=== PATIENT | female | born 1975 | race Caucasian/White ===

== ENCOUNTER 2019-02-19 10:25 | Emergency (ER) | payer BC ==
[2019-02-19 11:19] VITALS: BP 143/95
--- NOTE | 2019-02-19 16:30 | ED ---
Skin Complaint - HPI Summary HPI Summary: This patient is a 43-year-old female who is otherwise healthy presenting to the ED with a rash to the right side of the neck as well as to the right cheek. She states she was out gardening this weekend and immediately following the area started itching and becoming raised. She denies any changes with lotion or denies any tick bites or other rashes. Denies any spider bites. She states the area is very pruritic, slightly raised with small pustules, approximately 3- 4. She also is endorsing a slight burning sensation to the area. She denies any environmental changes or travel. She has tried hydrocortisone cream over- the-counter for relief. - History of Current Complaint Chief Complaint: EDRashSkinAbscess Time Seen by Provider: 02/19/19 10:51 Stated Complaint: HIVES PER PT Hx Obtained From: Patient Onset/Duration: Started Days Ago Skin Exposure Onset/Duration: Days Ago Timing: Constant Onset Severity: Moderate Current Severity: Moderate Pain Intensity: 0 Pain Scale Used: 0-10 Numeric Skin Location: Other: - right sided facial rash Character: Hives, Redness, Raised, Painful Aggravating Symptom(s): Nothing Alleviating Symptom(s): Nothing - Additional Pertinent History Recent Stress Test: No Have you ever had this problem before: No - Allergy/Home Medications Allergies/Adverse Reactions: Allergies Allergy/AdvReac Type Severity Reaction Status Date / Time erythromycin base Allergy Rash Verified 02/19/19 10:33 PMH/Surg Hx/FS Hx/Imm Hx Previously Healthy: Yes - Cancer History Hx Chemotherapy: No Hx Radiation Therapy: No - Immunization History Hx Pertussis Vaccination: No Immunizations Up to Date: Yes Infectious Disease History: No Infectious Disease History: Denies: Traveled Outside the [place] in Last 30 Days - Social History Occupation: Employed Full-time Lives: With Family Alcohol Use: Occasionally Hx Substance Use: No Substance Use Type: Reports: None Hx Tobacco Use: No Smoking Status (MU): Never Smoked Tobacco Review of Systems Constitutional: Negative Negative: Fever, Chills, Fatigue, Skin Diaphoresis Negative: Palpitations, Chest Pain Negative: Shortness Of Breath, Cough Genitourinary: Negative Positive: no symptoms reported, see HPI Negative: Arthralgia, Myalgia Positive: Rash Neurological: Negative All Other Systems Reviewed And Are Negative: Yes Physical Exam Triage Information Reviewed: Yes Vital Signs On Initial Exam: Initial Vitals Temp Pulse Resp BP Pulse Ox 98.3 F 92 16 146/97 98 02/19/19 10:29 02/19/19 10:29 02/19/19 10:29 02/19/19 10:29 02/19/19 10:29 Vital Signs Reviewed: Yes Appearance: Positive: Well-Appearing, Well-Nourished Skin: Positive: Warm, Skin Color Reflects Adequate Perfusion, Other - erythematous slightly raised macules pruritic rash with 3-4 small pustules representing a poison shirin/oak rash Head/Face: Positive: Normal Head/Face Inspection Eyes: Positive: EOMI, DEEPAK, Conjunctiva Clear Neck: Positive: Supple, No Lymphadenopathy Respiratory/Lung Sounds: Positive: Clear to Auscultation, Breath Sounds Present Cardiovascular: Positive: RRR, Pulses are Symmetrical in both Upper and Lower Extremities Musculoskeletal: Positive: Normal, Strength/ROM Intact Neurological: Positive: Speech Normal Psychiatric: Positive: Affect/Mood Appropriate Diagnostics - Vital Signs Vital Signs Temp Pulse Resp BP Pulse Ox 02/19/19 11:17 98.3 F 88 16 143/95 99 02/19/19 10:29 98.3 F 92 16 146/97 98 - Laboratory Lab Statement: Any lab studies that have been ordered have been reviewed, and results considered in the medical decision making process. Course/Dx - Course Course Of Treatment: During his course of treatment, the patient is evaluated for a slightly raised pruritic and slightly burning sensation to the right side of the neck as well as to the right cheek. She is also endorsing a small area to the left forearm and to the left ankle. On physical examination, patient appears well. These areas are slightly raised with a few small pustules. They appear to be erythematous macules. This appears to be poison oak. She is encouraged [id number] hydrocortisone cream due to the location on the neck and on the face. She is also given a prednisone taper, will use Benadryl at bedtime and famotidine during the day. - Differential Diagnoses - Skin Complaint Differential Diagnoses: Other - Contact dermatitis, allergic reaction - Diagnoses Provider Diagnoses: Poison shirin dermatitis Discharge ED - Sign-Out/Discharge Documenting (check all that apply): Patient Departure Patient Received Moderate/Deep Sedation with Procedure: No - Discharge Plan Condition: Stable Disposition: HOME Prescriptions: Famotidine TAB* [Pepcid 20 MG TAB*] 40 mg PO DAILY #6 tab predniSONE [Prednisone 20 MG TAB] 20 mg PO SEE INSTRUCTIONS #12 tablet Patient Education Materials: Poison Shirin (ED), Cold Compress or Soak (ED) Referrals: Kamryn ALLEN,Thelma [Primary Care Provider] - Additional Instructions: Use over the counter benadryl at bedtime for relief Over the counter hydrocortisone cream for relief of itching Prednisone as prescribed, using the taper Famoatidine in the morning x 6 days (this will be your daytime allergy medication) You may also use [id number] calamine lotion/caladril - Billing Disposition and Condition Condition: STABLE Disposition: Home
== END 2019-02-19 11:17 | disposition home or self-care (01) ==
LOC: ED 10:25
DX: L23.7 Allergic contact dermatitis due to plants, except food (principal); Z79.899 Other long term (current) drug therapy; Z88.1 Allergy status to other antibiotic agents
CPT/HCPCS: 99282

== ENCOUNTER 2019-02-25 06:17 | Emergency (ER) | payer BC ==
[2019-02-25 06:55] VITALS: BP 142/90
--- NOTE | 2019-02-25 06:58 | ED ---
Skin Complaint - HPI Summary HPI Summary: Pt. is a 43 y.o female who presents to the ER for ongoing rash. Pt. was seen in ED 6 days ago after coming into contact with what she believes was poison shirin. Pt. was placed on 6 day steroid taper and has been using creams. Pt. states rash seems to be improving on her arms but has now spread to face and noticed swelling to eyes. Denies shortness of breath or difficulty swallowing. Sxs are mild in severity. No current modifying factors. - History of Current Complaint Chief Complaint: EDGeneral Time Seen by Provider: 02/25/19 06:24 Stated Complaint: RASH ON FACE PER PT Hx Obtained From: Patient Pain Intensity: 0 - Allergy/Home Medications Allergies/Adverse Reactions: Allergies Allergy/AdvReac Type Severity Reaction Status Date / Time erythromycin base Allergy Rash Verified 02/19/19 10:33 Home Medications: Home Medications Levothyroxine TAB* [Synthroid TAB*] 88 mcg PO DAILY 02/25/19 [History Confirmed 02/25/19] PMH/Surg Hx/FS Hx/Imm Hx Previously Healthy: Yes - Cancer History Hx Chemotherapy: No Hx Radiation Therapy: No Infectious Disease History: No Infectious Disease History: Denies: Traveled Outside the [place] in Last 30 Days - Family History Known Family History: Positive: Non-Contributory - Social History Occupation: Employed Full-time Lives: With Family Alcohol Use: Occasionally Hx Substance Use: No Substance Use Type: Reports: None Hx Tobacco Use: No Smoking Status (MU): Never Smoked Tobacco Review of Systems Constitutional: Negative Negative: Fever, Chills Eyes: Negative ENT: Negative Cardiovascular: Negative Negative: Palpitations, Chest Pain Respiratory: Negative Negative: Shortness Of Breath, Cough Gastrointestinal: Negative Negative: Abdominal Pain, Vomiting, Diarrhea Positive: Rash All Other Systems Reviewed And Are Negative: Yes Physical Exam Triage Information Reviewed: Yes Vital Signs On Initial Exam: Initial Vitals Temp Pulse Resp BP Pulse Ox 98.7 F 99 18 144/105 98 02/25/19 06:18 02/25/19 06:18 02/25/19 06:18 02/25/19 06:18 02/25/19 06:18 Vital Signs Reviewed: Yes Appearance: Positive: Well-Appearing - Pt. sitting up in bed in NAD. Tear at times. Skin: Positive: Warm, Dry, Other Head/Face: Positive: Normal Head/Face Inspection Eyes: Positive: Normal, EOMI, DEEPAK, Conjunctiva Clear ENT: Positive: Pharynx normal Neck: Positive: Supple, Nontender, No Lymphadenopathy Respiratory/Lung Sounds: Positive: Clear to Auscultation, Breath Sounds Present. Negative: Rales, Rhonchi, Wheezes Cardiovascular: Positive: Normal, RRR Musculoskeletal: Positive: Normal, Strength/ROM Intact Neurological: Positive: Normal, CN Intact II-III Psychiatric: Positive: Affect/Mood Appropriate Diagnostics - Vital Signs Vital Signs Temp Pulse Resp BP Pulse Ox 02/25/19 06:55 142/90 02/25/19 06:27 99 20 175/124 99 02/25/19 06:26 104 19 99 02/25/19 06:18 98.7 F 99 18 144/105 98 - Laboratory Lab Statement: Any lab studies that have been ordered have been reviewed, and results considered in the medical decision making process. Course/Dx - Course Course Of Treatment: Pt. with worsening dermatitis. WIll place on a longer taper of prednisone. Advised to continue antihistamine for itching. Pt. will f.u with pcp and return er if sxs change or worsen. Pt. understands and agrees with plan. - Differential Diagnoses - Skin Complaint Differential Diagnoses: Cellulitis, Contact Dermatitis, Eczema, Poison Shirin, Poison [place] - Diagnoses Provider Diagnoses: Contact dermatitis Discharge ED - Sign-Out/Discharge Documenting (check all that apply): Patient Departure Patient Received Moderate/Deep Sedation with Procedure: No - Discharge Plan Condition: Good Disposition: HOME Prescriptions: predniSONE TAB* [Deltasone 10 MG TAB*] 10 mg PO DAILY 12 Days #42 tab Patient Education Materials: Contact Dermatitis (ED), Poison Shirin (ED) Referrals: [facility] [Outside] [facility] [place] [facility] [Outside] Additional Instructions: Schedule a follow up appointment with the [facility] in 3 days Take prednisone as directed Can continue antihistamine for itching Be sure to wash all objects that might have come into contact with poison Return to ER if symptoms change or worsen - Billing Disposition and Condition Condition: GOOD Disposition: Home
== END 2019-02-25 07:06 | disposition home or self-care (01) ==
LOC: ED 06:17
DX: L25.9 Unspecified contact dermatitis, unspecified cause (principal); Z79.899 Other long term (current) drug therapy; Z88.1 Allergy status to other antibiotic agents
CPT/HCPCS: 99282